=== PATIENT | female | born 1950 | race Caucasian/White ===

== ENCOUNTER 2019-03-07 11:43 | Emergency (ER) | payer MEDICARE ==
[~2019-03-07] VITALS: Ht 167.6 cm; Wt 89.4 kg
[2019-03-07] MEDS ORDERED: NO HOME MEDS (12:02)
--- NOTE | 2019-03-07 12:02 | NUR ---
Note [email or web address] in EDM - 03/07/19 at 1205 by [email or web address] pt states he is feeling depressed off/on for last 20-25 years. stated was seen at [facility] 6 months ago and stated they are unable to prescribe any medications. states he does not have a PMD at this time. no SI or HI.
[2019-03-07] MEDS ORDERED: HYDR12.55 PO (12:18)
[2019-03-07 12:39] VITALS: BP 170/97
== END 2019-03-07 12:42 | disposition home or self-care (01) ==
LOC: ER 11:44
DX: R42 Dizziness and giddiness (principal); T46.4X5A Adverse effect of angiotensin-converting-enzyme inhibitors, initial encounter; T44.7X5A Adverse effect of beta-adrenoreceptor antagonists, initial encounter; R11.0 Nausea; R07.81 Pleurodynia; R51 Headache; R07.9 Chest pain, unspecified; I10 Essential (primary) hypertension; Z79.899 Other long term (current) drug therapy; Z88.8 Allergy status to other drugs, medicaments and biological substances; Z88.5 Allergy status to narcotic agent; Z88.6 Allergy status to analgesic agent; Y92.89 Other specified places as the place of occurrence of the external cause
CPT/HCPCS: 93005; 99284

== ENCOUNTER 2019-04-11 11:31 | Emergency (ER) | payer MEDICARE ==
[~2019-04-11] VITALS: Ht 165.1 cm; Wt 88.2 kg
[~2019-04-11 11:31] MED LIST: HYDR12.55 PO; NO HOME MEDS
[2019-04-11 11:58] VITALS: BP 155/98
[2019-04-11] MEDS ORDERED: RAMI2.5C2 PO (12:29)
== END 2019-04-11 12:38 | disposition home or self-care (01) ==
LOC: ER 11:32
DX: K02.9 Dental caries, unspecified (principal); I10 Essential (primary) hypertension; F12.90 Cannabis use, unspecified, uncomplicated; Z60.2 Problems related to living alone; Z88.8 Allergy status to other drugs, medicaments and biological substances; Z88.5 Allergy status to narcotic agent; Z79.899 Other long term (current) drug therapy
CPT/HCPCS: 99283

== ENCOUNTER 2020-04-16 16:43 | Emergency (ER) | payer MEDICARE ==
[~2020-04-16] VITALS: Ht 165.1 cm; Wt 80.0 kg
[~2020-04-16 16:43] MED LIST changes: +RAMI2.5C2 PO
[2020-04-16 17:00] VITALS: BP 199/97
== END 2020-04-16 19:51 | disposition home or self-care (01) ==
LOC: ER 16:43
DX: M79.605 Pain in left leg (principal); I10 Essential (primary) hypertension; F12.90 Cannabis use, unspecified, uncomplicated; Z60.2 Problems related to living alone; Z88.8 Allergy status to other drugs, medicaments and biological substances; Z79.899 Other long term (current) drug therapy
CPT/HCPCS: 93971; 99284